=== PATIENT | male | born 1955 | race Caucasian/White ===

== ENCOUNTER 2019-01-17 11:30 | Outpatient (RCR) | payer SELFPAY ==
--- NOTE | 2019-01-17 12:57 | HP.PTEVAL ---
Patient's Visit Information KULWINDER MAS is a 63 year old M referred to Physical Therapy by Self Referred with a diagnosis of . Date of Evaluation: 01/17/19 Physical Therapist: OVI Fraser - Visit Plan Frequency: 1x/Week Duration: 2 Weeks Plan: Pt was treated with L EPLY for positive L Hallpike and pt will call in and let us know if his symptoms come back. Hold chart X 2 weeks. - Subjective Findings: This has been going on for 3 months. Pt went to [facility] Dr and they put him on a steroid for possible inner ear infection and did not seem to help it. It came on out of no where. His world spins and only lasts for a few seconds. Get it every morning rolling to the L to turn off alarm ( some days are better than others). He has some pain on the R side of his neck and almost like a sheldon horse in there and grabs in there. He works at a desk for most of the day. He was up and down on a ladder a lot this weekend and he was careful cause he felt unsteady. - Objective + L Hallpike for upward torsional nystagmus and dizziness that lasted less than 30 seconds. Did the L Eply from the hallpike position. Pt had increase dizziness moving through all EPLY positions. Re-tested L Hallpike and was negative for any dizziness or nystagmus. Went ahead and treated with L Eply one more time. Pt had no symptoms leaving the clinic. I went ahead and explained to avoid prolonged looking down through this evening and to go to bed as normal. - Rehabilitation Potential Physical Therapy Diagnosis: L BPPV Rehabilitation Potential: Good - Anticipated Interventions Patient/Client Instruction: Educate patient on: Plan of Care For the Purpose of:: To improve gait and locomotor functions, To improve balance Manual Therapy Techniques to Include: Other Comment: Eply For the Purpose of:: To improve balance, To improve safety with gait Thank you for the opportunity to evaluate your patient. For Medicare and Medicare HMO plans, please review the plan of care and approve it. It will need to be FAXED BACK to us at [phone] for Medicare purposes. For Medicare only, by signing this I certify the plan of care. Please let me know if there are questions or concerns regarding this plan of care. Physician Signature: Date:
--- NOTE | 2019-05-13 11:14 | HP.PT.NRP ---
HP - Discharge Summary (1) - Patient Information KULWINDER MAS was seen in my office for initial evaluation on 01/17/19. The following Plan of Care was established for this patient: Initial Frequency: 1x/Week Initial Duration: 2 Weeks - Anticipated Interventions Patient/Client Instruction: Educate patient on: Plan of Care For the Purpose of:: To improve gait and locomotor functions, To improve balance Manual Therapy Techniques to Include: Other Comment: Eply For the Purpose of:: To improve balance, To improve safety with gait This patient was last seen in our office 01/17/19. Pertinent comments regarding their Physical therapy will appear below: DC PT. Pt was treated with the Eply and was to call in if his symptoms persisted. He did not reschedule and will be discharged at this time. At this point I will be discontinuing this patient from physical therapy. I would be happy to see this patient again in the future if found appropriate by the physician. Thank you! Sri Mckenna, MPT
== END 2019-01-17 19:00 | disposition home or self-care (01) ==
LOC: PT 11:30
PROVIDERS: Family Provider Family Medicine; PCP Family Medicine; Visit Provider Family Medicine
DX: R69 Illness, unspecified (principal)
CPT/HCPCS: 97161